=== PATIENT | male | born 1960 | race Caucasian/White ===

== ENCOUNTER → 2017-01-19 | Outpatient (REF) ==
[~2017-01-19] MED LIST: ASPIRIN E.C. 8181 MG PO; OXYCODONE5 MG PO; ZOCOR80 MG PO; [UNRECOGNIZED DRUG - OTHER] IJ
== END ==
LOC: ZLAB.WCH 16:00
DX: Z01.89 Encounter for other specified special examinations (principal)

== ENCOUNTER → 2017-07-24 | Outpatient (REF) ==
[2017-07-24 15:53] LABS: PSA-TOTAL 0.51 ng/mL (0-4); THYROID STIMULATING HORMONE 1.46 uIU/mL (0.465-4.680)
== END ==
LOC: ZLAB.WCH 14:54
PROVIDERS: Internal Medicine
DX: Z01.89 Encounter for other specified special examinations (principal)
CPT/HCPCS: G0103

== ENCOUNTER → 2018-01-25 | Outpatient (REF) | LOC: ZLAB.WCH 15:34 | DX: Z01.89 Encounter for other specified special examinations (principal) ==

== ENCOUNTER → 2018-07-26 | Outpatient (REF) ==
[2018-07-26 16:59] LABS: PSA-TOTAL 0.38 ng/mL (0-4)
[2018-07-26 17:49] LABS: THYROID STIMULATING HORMONE 0.927 uIU/mL (0.465-4.680)
== END ==
LOC: ZLAB.WCH 16:05
PROVIDERS: Internal Medicine
DX: Z01.89 Encounter for other specified special examinations (principal)
CPT/HCPCS: G0103

== ENCOUNTER → 2019-01-27 | Outpatient (REF) | LOC: ZLAB.WCH 15:55 | DX: Z01.89 Encounter for other specified special examinations (principal) ==